=== PATIENT | female | born 1990 ===

== ENCOUNTER 2022-11-23 16:03 | Inpatient (IN) | payer BC ==
[2022-11-23] VITALS (18 sets, daily range): BP systolic 102–126; BP diastolic 57–75; PULSE 62–91; TEMP 98.2–99.3
[~2022-11-23] VITALS: Ht 167.7 cm; Wt 80.9 kg
--- NOTE | 2022-11-23 16:10 | NUR ---
Presents to labor and delivery. States thinks water broke at 1000 this morning. Assessment done, questiones offered and answered.
[2022-11-23] MEDS ORDERED: PRENATAL TABLET PO (16:44)
--- NOTE | 2022-11-23 17:45 | NUR ---
Pen g 5 million units iv given as ordered.
[2022-11-23 19:12] LABS: BASO % 0.3 % (0.0-2.0); EOS # 0.1 K/mm3 (0.0-0.7); EOS % 0.5 % (0.0-4.0); GRAN # 8.5 K/mm3 (1.4-6.5); GRAN % 77.1 % (42.2-75.2); HEMOGLOBIN 11.8 g/dl (12.5-16.0); LYMPH # 1.8 K/mm3 (1.2-3.4); LYMPH % 16.1 % (20.0-51.0); MEAN CELL VOLUME 85 fl (80.0-100.0); MEAN CORPUSCULAR HEMOGLOBIN 29 pg (27-31); MEAN CORPUSCULAR HGB CONC 34 g/dl (33.0-37.0); MEAN PLATELET VOLUME 11.3 fl (7.4-10.4); MONO # 0.6 K/mm3 (0.1-0.6); MONO % 5.3 % (1.7-9.3); PLATELET COUNT 230 K/mm3 (130-400); RED BLOOD COUNT 4.11 M/mm3 (4.10-5.30)
[2022-11-23 19:17] LABS: HEMATOCRIT 34.9 % (37.0-47.0)
--- NOTE | 2022-11-23 21:20 | NUR ---
called and updated on pt's status. See physican notification. 2124: Pitocin and possible side effects of starting pitocin after explained. Pt okay to start slowly at this time. Questions answered. 2129: Pitocin started at 1mu/hr per orders.
[2022-11-24] VITALS (53 sets, daily range): BP systolic 94–136; BP diastolic 49–83; PULSE 64–114; TEMP 97.7–99.4
--- NOTE | 2022-11-24 00:15 | NUR ---
Pt requesting an epidural at this time. 0019: Socorro MARTINEZ notified. 0027: Socorro MARTINEZ at bedside. Pt sitting on edge of bed. Procedure and risks explained. Pt verbalized her understanding. Pulse ox applied. 0034: Single shot administered by Socorro MARTINEZ. See anesthesia records. 0038: Pt assisted to jacinto-rodríguez position. Plan of care and safety precautions explained. Pt verbalizes her understanding.
--- NOTE | 2022-11-24 02:18 | NUR ---
Recurrent subtle late deceleration noted. Pt repositioned to wedge right position. 0240: Late deceleration noted. Pt repositioned to left lateral position. 0245: SVE 6/-2. Pitocin turned off due to late decelerations continuing. 0252: notified. See physican notification.
--- NOTE | 2022-11-24 07:15 | NUR ---
0708- LATE DECEL NOTED, PT REPOSTISTIONED INTO LL WITH PEANUT BALL. [id number]: VARIABEL TO THE 90'S-110'S NOTED WELL LATE DECEL AT 0721. SVE:7/SWELLING ON LEFT CERVIX/-2, REPOSITIONED INTO SEMI FOWLERS. DR. CHAPA NOTOFIED AT 0731. [id number]: RECURRENT LATE DECELS NOTED, PT POSITIONED ONTO RL SIDE. 0825: RECURRENT LATES PERSISTENT WITH INTERMITTENT VARIABLES TO THE 70S. CHARGE NURSE AT BEDSIDE TO ASSESS. SVE: 8CM DILATED WITH SWOLLEN CERVIX ALL THE WAY AROUND. PT REPOSTIONED INTO HANDS AND KNEES 0833: DR. CHAPA AT BEDSIDE TO ASSESS AND TALK WITH PT. C/S DELIVERY ADVISED AND PT IS AGREEABLE. SURGICAL SITE PREPPED AND ALL QUESTIONS ANSWERED. 0845- EPIDURAL DOSED AND PT TRANSFERRED TO OR VIA BED.
[2022-11-25 00:15] VITALS: BP 110/61; PULSE 70; TEMP 98.1
[2022-11-25 03:45] VITALS: BP 100/65; PULSE 69; TEMP 97.5
[2022-11-25 07:30] VITALS: BP 103/59; PULSE 64; TEMP 98
[2022-11-25] MEDS ORDERED: IBU600 MG PO (08:34)
[2022-11-25] MEDS ORDERED: NORCO 325 MG-51 TAB PO (08:34)
--- NOTE | 2022-11-25 09:27 | NUR ---
Initial visit attempt; Physician with family. Technical Delivery Manager left card offering congratulations and God's blessings for the of their son and information regarding the availability of Spiritual Care for their family at our hospital.
[2022-11-25 16:04] VITALS: BP 99/51; PULSE 72; TEMP 98.1
[2022-11-25 20:28] VITALS: BP 94/54; PULSE 70; TEMP 97.6
[2022-11-26 08:40] VITALS: BP 110/72; PULSE 92; TEMP 97.7
== END 2022-11-26 11:10 | disposition home or self-care (01) | DRG 787 ==
LOC: LDRO 16:03 → LDR 17:22 → OB 11-24 10:30
PROVIDERS: Obstetrics & Gynecology; ADMIT Obstetrics & Gynecology
PROC: 10D00Z1 Extraction of Products of Conception, Low, Open Approach (ICD-10-PCS; principal; 2022-11-24)
DX: O48.0 Post-term pregnancy (principal); O99.354 Diseases of the nervous system complicating childbirth; Z37.0 Single live birth; O76 Abnormality in fetal heart rate and rhythm complicating labor and delivery; O77.0 Labor and delivery complicated by meconium in amniotic fluid; O62.0 Primary inadequate contractions; O75.89 Other specified complications of labor and delivery; O34.93 Maternal care for abnormality of pelvic organ, unspecified, third trimester; G43.909 Migraine, unspecified, not intractable, without status migrainosus; O99.820 Streptococcus B carrier state complicating pregnancy; O34.211 Maternal care for low transverse scar from previous cesarean delivery; Z3A.41 41 weeks gestation of pregnancy; Z88.5 Allergy status to narcotic agent
CPT/HCPCS: J0690; J1885; J2405; J2540; J2590; J2795; J7120